=== PATIENT | female | born 1945 | race Caucasian/White ===

== ENCOUNTER → 2016-04-21 | Outpatient (CLI) | payer MEDICARE, OTHER ==
[~2016-04-21] MED LIST: ATIVAN 1 MG1 MG PO; CALTRATE 600 +1 EAC1 PO; CLARITIN10 MG PO; CPAP INH; CRANBERRY500 M1 PO; ESTER-C 500 MG1 EACH PO; FEMARA 2.5 MG2.5 MG PO; FIBER500 MG PO; FISH OIL 1,0001 EACH PO; FLONASE 50 MCG/16 GM NOSE; GARLIC1 EAC1 PO; HUMIBID LA (MU600 MG PO; MAGNESIUM SULFATE 1 GM PO; MULTIPLE VITAM1 EAC2 PO; NOPALEA PO; PRILOSEC20 MG PO; PRINIVIL (ZESTR20 MG PO; TURMERIC500 MG PO; [UNRECOGNIZED DRUG - OTHER] PO; [UNRECOGNIZED DRUG - OTHER] PO
--- NOTE | 2016-04-21 11:30 | NUR ---
Met with patient prior to biopsy. Introduced self and role of nurse navigator. Will call patient on Sunday to see how she is doing. No questions or concerns
== END | disposition disaster alternative care site (69) ==
LOC: GPOC 04-19 15:00 → GBCOE 09:23 → GPOC 10:00
PROC: 0HBT3ZX Excision of Right Breast, Percutaneous Approach, Diagnostic (ICD-10-PCS; principal; 2016-04-21)
DX: R92.0 Mammographic microcalcification found on diagnostic imaging of breast (principal)
CPT/HCPCS: J7050